=== PATIENT | male | born 1965 | race Caucasian/White ===

== ENCOUNTER → 2017-04-09 07:52 | Outpatient (CLI) | payer BC ==
[2015-08-31 09:38] VITALS: BMI 26.5
[~2017-04-09 07:52] MED LIST: CHANTIX PAK 0.5; CHANTIX0.5 MG PO; DIOVAN320 MG PO; HYDROCODONE-APA1 TAB PO; LANTUS INSULIN10 ML SC; NORVASC5 MG PO; PERCOCET 7.5/321 TAB PO; PLAVIX75 MG PO; XANAX1 MG PO
== END | disposition home or self-care (01) ==
LOC: D.RAD 07:52
DX: M25.512 Pain in left shoulder (principal)

== ENCOUNTER 2017-04-20 07:13 | Day surgery (SDC) | payer BC ==
[2017-04-19 10:34] LABS: HEMATOCRIT 50.9 % (42.0-54.0); HEMOGLOBIN 17.8 g/dL (13.5-17.5); MCH 31.9 pg (26.0-34.0); MCV 91.2 fL (80.0-100.0); MEAN PLATELET VOLUME 10.6 fL (7.4-10.4); RBC 5.58 10x6/uL (4.20-6.10); RDW 13.6 % (11.5-14.5); WBC 7.9 10x3/uL (4.8-10.8)
[2017-04-19 11:03] LABS: ANION GAP 11.6 mmol/L (8-16); CALCIUM 9.8 mg/dL (8.5-10.1); CARBON DIOXIDE 30.1 mmol/L (21.0-32.0); CREATININE - SERUM 1.1 mg/dL (0.6-1.3); POTASSIUM - SERUM 4.7 mmol/L (3.5-5.1)
[~2017-04-20] VITALS: Ht 182.9 cm; Wt 81.6 kg
--- NOTE | ~2017-04-20 | OP ---
PATIENT NAME: LICO TAYLOR MEDICAL RECORD: [id number] :61 LOCATION:[facility] ADMISSION DATE: SURGEON: PILAR COLVIN DO DATE OF OPERATION: 04/20/2017 DATE OF SURGERY: 04/20/2017 PROCEDURE PERFORMED: Left shoulder arthroscopy with subacromial decompression and biceps tenodesis. PREOPERATIVE DIAGNOSES: Left shoulder pain, possible rotator cuff tear, superior labrum anterior and posterior tear and subacromial impingement. POSTOPERATIVE DIAGNOSES: Left shoulder superior labrum anterior and posterior tear, type 2 and subacromial impingement. INDICATIONS: Mr. Taylor is a 51-year-old male that had left shoulder pain for quite some time with lifting and straining and even had some strength loss. He had an MRI ordered, but did not tolerate due to claustrophobia and then we did a CT arthrogram and images were inconclusive for rotator cuff tear; however, did appear to have a SLAP tear. He was tired of dealing with pain. We informed him of the risks and benefits of procedure, he consented to the procedure. Told him we would look at the rotator cuff very thoroughly during the procedure and would do the other things we talked about. SURGEON: Pilar Colvin D.O. BLOOD LOSS: Minimal. COMPLICATIONS: None. DESCRIPTION OF ANESTHESIA: The patient was given a block by anesthesia in the preoperative area then taken to the operative suite, laid in supine position, given general anesthetic. LMA was placed. The left shoulder was prepped and draped in sterile fashion and a timeout was performed, everyone was in agreement with the correct side, site and patient. The procedure began then with an 18-gauge needle insufflating the shoulder joint. Two posterior portals were established to get better angles at the subacromial space as well as the shoulder joint itself with 11 blades shoulder joint was entered. A large SLAP tear was seen in the supraspinatus. On inspection of the joint, did not appear to have a tear on the articular side. The inferior aspect of the joint looked good too as well as the articular cartilage. The subscapularis tendon was intact as well. The anterior portal was then established and the bicep tendon was tenotomized with the burner and the shoulder was reinspected having more room it. Again, no tears were seen in the supraspinatus or subscapularis or infraspinatus, then went to the subacromial space and decompression was done. There was a decent size spur on the acromion. This opened the subacromial space up quite a bit. Before this was done, a lateral portal was established in order to perform the decompression then the attention was drawn to the biceps tenodesis. Incision was made just at the pec insertion on the humerus and a careful dissection was made down to the humerus itself and retractors put in place. The biceps tendon was pulled out of the wound with a 90-degree hemostat and then an Allis was used to clamp the tendon and tendon was whipstitched and then a button was placed on the suture. A unicortical hole was drilled in the humerus and then the button was put in the hole and then the biceps tendon was OPERATIVE REPORT [id number] LICO TAYLOR toggled down and oversewn with a free needle with the ends of the suture and I was tied down. The excess suture and tendon were cut at that time. The wound was thoroughly irrigated and then the skin was closed with 2-0 Vicryl inverted interrupted fashion at the bicep tenodesis site and a 4-0 Monocryl was run on the skin and Dermabond was placed on the skin. Then, the portal sites, the 2 posterior, 1 lateral and 1 anterior were closed with 4-0 Monocryl in a single inverted interrupted stitch and Dermabond was placed over each of those and Adaptic Telfa and Tegaderm were placed on each of the wounds. The patient was awakened and taken to recovery and put in a sling in stable condition TRANSINT:[id number] Voice Confirmation ID: [id number] DOCUMENT ID: [id number] PILAR COLVIN DO at 1248 CC: [id number] DICTATION DATE: 04/20/171717 SERVICE OPERATIONS MANAGER: 04/20/171919 [facility] 04/20/17 [facility] [address] [id number]
[~2017-04-20 07:13] MED LIST changes: -PERCOCET 7.5/321 TAB PO
[2017-04-20 10:13] VITALS: BP 161/106; Ht 182.9 cm; Wt 81.6 kg
[2017-04-20] MEDS ORDERED: PERCOCET 7.5/321 TAB PO (17:12)
== END 2017-04-20 18:45 | disposition home or self-care (01) ==
LOC: D.OPS 07:13 → D.PAN 09:20 → D.OPS 09:30 → D.PAN 09:30 → D.OPS 11:00
PROVIDERS: Anesthesiology
DX: S43.432A Superior glenoid labrum lesion of left shoulder, initial encounter (principal); X58.XXXA Exposure to other specified factors, initial encounter; F17.200 Nicotine dependence, unspecified, uncomplicated; I10 Essential (primary) hypertension; E11.9 Type 2 diabetes mellitus without complications; Z01.812 Encounter for preprocedural laboratory examination